=== PATIENT | male | born 1975 | race Two or more races ===

== ENCOUNTER 2019-06-25 18:18 | Emergency (ER) | payer MEDICARE, MEDICAID ==
[~2019-06-25] VITALS: Ht 172.7 cm; Wt 80.0 kg
[2019-06-25] MEDS ORDERED: NITROGLYCERIN OINT 1GM/INCH UDPKT TD ONE (18:45)
[2019-06-25 20:15] VITALS: BP 169/83
== END 2019-06-25 20:20 | disposition left against medical advice (07) ==
LOC: ER 18:18
DX: R06.02 Shortness of breath (principal); E87.70 Fluid overload, unspecified; I12.0 Hypertensive chronic kidney disease with stage 5 chronic kidney disease or end stage renal disease; N18.6 End stage renal disease; R18.8 Other ascites; K74.60 Unspecified cirrhosis of liver; Z99.2 Dependence on renal dialysis
CPT/HCPCS: 71045; 93005; 99283